=== PATIENT | female | born 1980 | race African-American/Black ===

== ENCOUNTER 2019-03-18 10:20 | Emergency (ER) | payer MEDICARE, MEDICAID ==
[~2019-03-18] VITALS: Ht 157.5 cm; Wt 72.6 kg
[~2019-03-18 10:20] MED LIST: ZOFRAN ODT4 MG PO
[2019-03-18 11:06] LABS: HEMOGLOBIN 9.9 gm/dL (12.0-15.0); MPV 6.7 fl. (7.2-11.1)
[2019-03-18 11:07] LABS: HEMATOCRIT 30.6 % (37.0-47.0); MCH 23.3 pg (26.0-34.0); MCHC 32.4 g/dL (28.0-37.0); MCV 71.8 fL (80.0-100.0); NUCLEATED RBCS 0 /100WBC; PLATELET COUNT* 447 thou/uL (150-400); RBC 4.26 mil/uL (4.20-5.00); RDW-CV 17.6 % (10.5-14.5); WBC 4.2 thou/uL (4.0-11.0)
[2019-03-18 11:15] LABS: CALCIUM 7.7 mg/dL (8.5-10.1); CREATININE 0.8 mg/dL (0.6-1.3); POTASSIUM 4.2 mmol/L (3.5-5.1)
[2019-03-18 11:19] LABS: ALBUMIN 3.3 g/dL (3.4-5.0); TOTAL BILIRUBIN 0.3 mg/dL (<0.1-1.0); TOTAL PROTEIN 7.4 g/dL (6.4-8.2)
[2019-03-18 11:27] VITALS: BP 141/79
[2019-03-18 11:52] LABS: ABSOLUTE EOSINOPHILS 0.2 thou/uL (0.0-0.7); ABSOLUTE LYMPHOCYTES 2.6 thou/uL (0.8-5.3); ABSOLUTE MONOCYTES 0.5 thou/uL (0.0-1.2)
[2019-03-18 11:53] LABS: ANISOCYTOSIS 1+; PLATELET ESTIMATE INCREASED
[2019-03-18 11:54] LABS: HYPOCHROMASIA 1+
[2019-03-18 11:55] LABS: MICROCYTES 2+
--- NOTE | 2019-03-19 17:06 | EKG ---
[place] [address] ELECTROCARDIOGRAM REPORT Name: DRU RICK Room: [facility]#: [id number] Admission: 03/18/19 Attend Phys: Discharge: 03/18/19 Date of : 82 Report #: [id number] THIS REPORT FOR: //name// 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
== END 2019-03-18 11:28 | disposition left against medical advice (07) ==
LOC: M.ERS 10:20
PROVIDERS: Personal Emergency Response Attendant
DX: R07.89 Other chest pain (principal)

== ENCOUNTER 2019-05-27 23:57 | Emergency (ER) | payer MEDICARE ==
[~2019-05-27] VITALS: Ht 157.5 cm; Wt 77.1 kg
[2019-05-28 00:06] VITALS: BP 116/76
[2019-05-28] MEDS ORDERED: Magic Mouthwash SW&SWALLOW (01:02)
[2019-05-28] MEDS ORDERED: AMOXICILLI400 MG/5 M PO (01:02)
[2019-05-28] MEDS ORDERED: HYDROCODON-ACE1 EAC7 PO (01:02)
== END 2019-05-28 01:07 | disposition home or self-care (01) ==
LOC: M.ERS 23:57
DX: J02.0 Streptococcal pharyngitis (principal)